=== PATIENT | female | born 1975 | race Caucasian/White ===

== ENCOUNTER 2019-07-21 00:39 | Day surgery (SDC) | payer OTHER, SELFPAY ==
[2019-07-11 14:07] VITALS: BMI 21.2
--- NOTE | 2019-07-21 07:23 | WPDHPUPDATE1 ---
History and Physical Update Update Date/Time: 07/21/19 07:23 History and Physical has been reviewed, including an updated exam of the patient. There are NO changes in the patient's condition. Risks, benefits, and alternatives have been discussed and questions answered. Patient agrees to proceed with procedure.
[2019-07-21 10:05] VITALS: BP 113/70; PULSE 72; RESP 18; TEMP 36.4; O2SAT 100
[2019-07-21] MEDS: LACTATED RINGERS 1,000 ML 30 ML IV CONT (10:05)
--- NOTE | 2019-07-21 10:07 | P.PNAN_ITS ---
Anes - Initial Pre Proc Eval Procedure: Operation Date: 07/21/19 10:45 Proposed Procedures p Urethral Sling - Tal Mccann MD Date/Time: 07/21/19 10:07 Surgeon: Tal Mccann MD Pre Op Diagnosis: Stress incontinence Patient Data Age: 44 Gender: F Height: 5 ft 7 in Weight: 61.69 kg Allergies Allergy/AdvReac Type Severity Reaction Status Date / Time No Known Allergies Allergy Verified 07/11/19 14:08 Home Medications Medication Instructions Recorded Confirmed Type hydrocodone-acetaminophen 1 tablet PO BID 07/11/19 07/11/19 History multivitamin 1 tablet PO DAILY 07/11/19 07/11/19 History Patient hx anesthesia problems: none Family hx anesthesia problems: none [facility] Past Medical History Medical History (Updated 07/21/19 @ 10:07 by Carlton Glasgow MD) Chronic pain Anes - Eval Final PreProcedure Day of Procedure 07/21/19 10:07 Patient weight: normal Heart: regular rate and rhythm Lungs: clear to auscultation Airway: Mallampati scale class II Neurological: alert and oriented Last oral intake: >/= 8 hours ASA classification: II Emergent: no Anesthetic plan: proceed Anesthesia type and monitoring: general GIVS and standard monitoring Informed Consent: The patient's anesthetic plan and its attendant risks and benefits were discussed with the patient/family/POA. Questions were solicited and answers provided to the satisfaction of the patient/family/POA.
[2019-07-21] MEDS: ceFAZolin 2 GM/D5W 50 ML 2 GM/50 ML BAG IVPB (10:37)
[2019-07-21] MEDS: BUPIVACAINE/EPINEPHRINE 0.25% 50 ML VIAL INFILTRATE (10:51)
--- NOTE | 2019-07-21 11:07 | PM.PROC ---
Procedure Note - Detailed Date of procedure: 07/21/19 Pre-op diagnosis: Stress incontinence Stress urinary incontinence Post-op diagnosis: same Procedure performed: Transobturator Mid-urethral sling Cystoscopy Description of procedure: This is a patient with confirmed stress urinary incontinence. She desires correction. She understands the risks of bleeding, infection, damage to the urinary tract, lack of cure of stress incontinence, recurrence of stress incontinence, postoperative voiding dysfunction including incontinence and retention, need for ancillary procedures to loosen remove the sling, postoperative voiding dysfunction including retention and overactive bladder, hip and leg pain, dyspareunia, mesh related complications including exposure and extrusion. She agrees to proceed. She understands it will not help overactive bladder symptoms if present. She was correctly identified and informed consent obtained. She is brought to the operating room. She was given appropriate anesthesia. She was placed in the dorsal lithotomy position. All pressure points were padded. She was given appropriate perioperative antibiotics and a time-out performed. A Babcock catheter is placed. I marked out the thigh incisions anesthetize the skin and made those incisions. I anesthetized the anterior vaginal wall over the mid urethra. I made a 1 cm incision. I dissected out laterally taking great care not to injure the urethra or the vaginal wall. Passed the helical trocars 1st on the left and then on the right from the thigh incision towards the vaginal incision. Sling was connected to the trocars and brought out through the thigh incision. I tensioned the sling appropriately. I cut and removed the plastic sheaths. I closed the incision with 2 0 Vicryl. I then performed cystoscopy. There was no surgical artifact or abnormalities inside the bladder. The urethra was normal without surgical artifact. I cut the excess sling material. I closed the incisions with glue. She was awakened and transferred to the PACU in stable condition. Implants: Mid urethral sling Surgeon: Tal Mccann MD Drains: No Packing: No Pathology: none sent Complications: No immediate complications Condition: stable Disposition: PACU
[2019-07-21 11:12] VITALS: BP 116/65; PULSE 67; RESP 14; O2SAT 100
[2019-07-21 11:42] VITALS: BP 127/82; PULSE 55; RESP 14
[2019-07-21 11:45] VITALS: BP 124/56; PULSE 83
--- NOTE | 2019-07-21 11:59 | SUR.PHASEII ---
PT URINATED AND PAIN IS CONTROLLED BEFORE DISCHARGE
== END 2019-07-21 11:57 | disposition home or self-care (01) ==
PROVIDERS: Visit Provider Urology
PROC: (CPT 57288; principal; 2019-07-21 10:45)
DX: N39.3 Stress incontinence (female) (male) (principal); G89.29 Other chronic pain; Z79.891 Long term (current) use of opiate analgesic
CPT/HCPCS: 57288; A9270; C1771; J0131; J0690; J1100; J2250; J2405; J2704; J3010; J7030; J7120

== ENCOUNTER 2023-07-09 15:13 | Outpatient (CLI) | payer OTHER, SELFPAY ==
--- NOTE | ~2023-07-09 | MR_ITS ---
EXAMINATION: MR lumbar spine wo con DATE: 07/09/2023 15:21 INDICATION: Other intervertebral disc degeneration, lumbar reg . TECHNIQUE: Magnetic resonance imaging (MRI) of the lumbar spine was performed with intravenous contra st. Sequences included sagittal T2-weighted FSE, sagittal T2-weighted FS FSE, sagittal T1-weighted FS E, and axial T2-weighted FSE. COMPARISON: None FINDINGS: The last fully formed and hydrated disc is designated L5-S1. The marrow signal is benign an d homogenous. Conus terminates at L1-2. Multilevel loss of disc height and hydration from L3 to 4 thr ough L5/S1. 3 mm retrolisthesis at L3-4. The following disc levels are specifically discussed: T11-T12: The disc does not extend beyond the endplate margin. There is no facet joint osteoarthritis. There is no neural foraminal stenosis. There is no central canal stenosis. T12-L1: The disc does not extend beyond the endplate margin. There is mild facet joint osteoarthritis . There is no neural foraminal stenosis. There is no central canal stenosis. L1-L2: The disc does not extend beyond the endplate margin. There is mild facet joint osteoarthritis. There is no neural foraminal stenosis. There is no central canal stenosis. L2-L3: Mild disc bulge. There is mild facet joint osteoarthritis. There is no neural foraminal stenos is. There is no central canal stenosis. L3-L4: Moderate diffuse bulge. There is moderate facet joint osteoarthritis. There is mild bilateral inferior neural foraminal stenosis. There is no central canal stenosis. L4-L5: Moderate diffuse disc bulge with a 2 mm left subarticular extrusion and a posterior disc rent. There is moderate facet joint osteoarthritis, with a 3 mm anteriorly directed synovial cyst projecti ng off the right facet. There is moderate left and mild right neural foraminal stenosis. There is no central canal stenosis. L5-S1: Mild diffuse bulge There is mild facet joint osteoarthritis. There is mild bilateral neural fo raminal stenosis. There is no central canal stenosis. IMPRESSION: Grade 1 retrolisthesis at L3-4. Moderate degenerative disc disease at L3-4 through L5-S1. 2 mm left subarticular L4-5 disc extrusion, superimposed on a diffuse bulge, which contribute to mode rate left neural foraminal narrowing. Multilevel mild neural foraminal narrowing. Multilevel moderate lower lumbar facet arthropathy. Reviewed, dictated and finalized at location [facility]. [facility] [employer] IMPRESSION: Grade 1 retrolisthesis at L3-4. Moderate degenerative disc disease at L3-4 through L5-S1. 2 mm left subarticular L4-5 disc extrusion, superimposed on a diffuse bulge, wh ich contribute to moderate left neural foraminal narrowing. Multilevel mild neural foraminal narrowing. Multilevel moderate lower lumbar facet arthropathy.
== END 2023-07-09 15:14 ==
DX: M51.36 Other intervertebral disc degeneration, lumbar region (principal); M43.16 Spondylolisthesis, lumbar region
CPT/HCPCS: 72148

== ENCOUNTER 2024-04-28 13:15 | Outpatient (RCR) | payer OTHER, SELFPAY ==
--- NOTE | 2024-04-06 13:13 | OTOPEVAL1 ---
Assessment and note entered by JASMIN Marroquin/Lana, CHT Evaluation Information Assessment Status Evaluation Diagnosis Dog bite, degloving injury of right hand ICD-10 Condition Codes (OT) M79.641 Subjective Information Patient is right handed. 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 Patient was bit by a dog on 03/23/24, she went to the ER and was transferred to [facility]. On 03/23/24 patient underwent exploration of the wound, irrigation and debridement, and laceration repair. She presents with the right small finger wrapped in bandages with dissolvable stitches in place. She reports constant throbbing at rest. Reported Pain Level Pain Score 8: Self Report Assessment OT Clinical Summary Patient referred to OT following a dog bite. She is 2 weeks s/p I&D of the wound as well as repair of the laceration. She presents with a decline in right hand use due to residual pain, ROM limitations, and weakness. Skilled OT indicated for HEP instruction and progression, wound management, and therapeutic exercise to facilitate optimal use of her right, dominant hand. Plan of Care Interventions Therapeutic Exercise,Manual Therapy,Therapeutic Activities,Hot Pack/Cold Pack,Ultrasound,Paraffin OT Services Indicated Yes Treatment Frequency and 1x/week for 5 visits Duration These treatments will address the objective and functional deficits as defined above. The patient will be advanced safely and appropriately in order for the patient to progress towards his/her prior level of function. Additional exercises will be introduced and as well as a comprehensive home exercise program upon discharge, if needed, ?to ensure carryover of functional gains achieved in the clinic. This treatment plan has been reviewed and agreement upon by the patient.
--- NOTE | 2024-04-06 13:14 | OPREHPOC ---
Outpatient Therapy Plan of Care This is a Multidisciplinary Plan of Care that may contain components documented by all disciplines (PT, OT, and ST.) OT Problem 1 OT Problem #1 Knowledge Deficit OT Goal 1 Goal / Goal Update 1. Patient to be independent with instructed materials. Target Visit 5 OT Problem 2 OT Problem #2 Pain OT Goal 1 Goal / Goal Update 1. Patient to be independent with non-medication pain management - ROM - heat/ice - rest Target Visit 5 OT Problem 3 OT Problem #3 Impaired Range of Motion OT Goal 1 Goal / Goal Update 1. 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 Target Visit 5 OT Problem 4 OT Problem #4 Impaired Strength OT Goal 1 Goal / Goal Update 1. 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 Target Visit 5
--- NOTE | 2024-04-17 15:06 | PCOTNOTE ---
Patient did not show up for scheduled appointment this date.
--- NOTE | 2024-04-28 13:55 | OTOPDC ---
Assessment and note entered by Terrence Cain, OTR/Lana, CHT OT D/C 04/28/24 Diagnosis Dog bite, degloving injury of right hand ICD-10 Condition Codes (OT) M79.641 Subjective Information Patient reports good progress overall. Her wound is closed and is looking great. She is now able to make a fist, touching her finger tips to her palm. Hook fist measuring 2 cm gap actively and 0 cm gap passively. She is no longer having constant throbbing pain, increased pain if she bumps her hand. Reports residual numbness and tingling, but overall this is improving also. She reports she is back to completing ADLs without any difficulty. She has been compliant with HEP. Assessment OT Clinical Summary Patient referred to OT following a dog bite. She is ~5 weeks s/p I&D of the wound as well as repair of the laceration. She has made excellent progress with therapy. 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 She has some residual intrinsic tightness and is working on passive, active, and strengthening exercises to achieve a hook fist on the small finger. Scar mobilization was also initiated today as all of her stitches have fallen out and her scar is closed. She is currently independent with all materials. No further skilled OT indicated at this time. Thank you for this referral. Plan of Care OT Services Indicated No
== END 2024-04-28 16:29 | disposition home or self-care (01) ==
LOC: ANHOT 13:15
DX: S61.401A Unspecified open wound of right hand, initial encounter (principal); W54.0XXA Bitten by dog, initial encounter
CPT/HCPCS: 97110; 97140; 97165